=== PATIENT | male | born 1985 | race African-American/Black ===

== ENCOUNTER 2023-06-18 10:04 | Inpatient (IN) | payer OTHER ==
[~2023-06-18] VITALS: Ht 188 cm; Wt 88.0 kg
[2023-06-18 10:39] LABS: BASOPHILS % 0.3 % (0.0-2.0); EOSINOPHILS % 0.3 % (0.0-5.0); HEMATOCRIT. 43.4 % (42.0-52.0); HEMOGLOBIN. 14.8 g/dL (14.0-18.0); LYMPHOCYTES % 13.8 % (20.0-50.0); MEAN CORPUSCULAR HEMOGLOBIN 29.5 pg (28.0-32.0); MEAN CORPUSCULAR HGB CONC 34.2 g/dL (31.0-37.0); MEAN CORPUSCULAR VOLUME 86.4 fL (80.0-94.0); MEAN PLATELET VOLUME 8.2 fl (7.4-10.4); MONOCYTES % 8.2 % (2.0-8.0); NEUTROPHILS % 77.4 % (40.0-76.0); PLATELET 284 x1000/uL (130-400); RED BLOOD CELL COUNT 5.03 mill/uL (4.7-6.1); RED CELL DISTRIBUTION WIDTH 14.1 % (11.6-14.6); WHITE BLOOD COUNT 9.4 x1000/uL (4.5-11.0)
[2023-06-18 10:54] LABS: ALANINE AMINOTRANSFERASE < 7 IU/L (10-49); ALBUMIN 3.8 g/dL (3.2-4.8); ASPARTATE AMINOTRANSFERASE 17 IU/L (<34); BILIRUBIN TOTAL 0.5 mg/dL (0.1-1.0); CALCIUM 8.2 mg/dL (8.7-10.4); CARBON DIOXIDE 21 mEq/L (21-32); CHLORIDE 102 mEq/L (98-107); GLUCOSE 135 mg/dL (70-105); POTASSIUM 4.1 mEq/L (3.5-5.1); PROTEIN TOTAL 7.7 g/dL (6.0-8.3); SODIUM 131 mEq/L (136-145); UREA NITROGEN BLOOD 14 mg/dL (9-23)
[2023-06-18] MEDS: AZITHROMYCIN 500 MG TABLET PO ONE (11:44)
[2023-06-18] MEDS: ACETAMINOPHEN 325MG TABLET PO ONE (11:44)
[2023-06-18] MEDS: AMOXICILLIN/POTASSIUM CLAVULANATE 875/125MG TAB PO ONE (11:44)
[2023-06-18] MEDS: KETOROLAC 60MG/2ML VIAL IM ONE (11:44)
[2023-06-18] MEDS: SODIUM CHLORIDE 0.9% 1,000 ML IV ONE ×2 (12:20→14:34)
[2023-06-18 15:54] LABS: TROPONIN I HIGH SENSITIVITY 81 ng/L (3.0-53)
[2023-06-18] MEDS ORDERED: ONDANSETRON HCL 4MG/2ML INJ IV PRN (18:00)
[2023-06-18] MEDS ORDERED: DIPHENHYDRAMINE 50MG/ML VIAL IV PRN (18:00)
[2023-06-18] MEDS ORDERED: IPRATROPIUM/ALBUTEROL 0.5-3(2.5)MG/3ML NEB HHN PRN (18:00)
[2023-06-18] MEDS ORDERED: CLONIDINE 0.1MG TABLET PO PRN (18:00)
[2023-06-18] MEDS: SODIUM CHLORIDE 0.9% 1,000 ML IV SCH (18:38)
[2023-06-18] MEDS: CEFTRIAXONE 1GM/50ML 50 ML IV SCH (18:48)
[2023-06-18] MEDS: ACETAMINOPHEN 325MG TABLET PO PRN (19:01)
[2023-06-18 19:25] LABS: CLARITY URINE CLEAR (CLEAR); COLOR URINE DARK YELLOW (YELLOW); GLUCOSE URINE NEGATIVE (NEGATIVE); KETONES URINE TRACE (NEGATIVE); LEUKOCYTE ESTERASE URINE TRACE (NEGATIVE); NITRITE URINE NEGATIVE (NEGATIVE); OCCULT BLOOD URINE NEGATIVE (NEGATIVE); PH URINE 5.5 (4.5-8.0); PROTEIN URINE 2+ (NEGATIVE); SPECIFIC GRAVITY URINE 1.034 (1.005-1.030)
[2023-06-18 20:04] LABS: RBC URINE 0-2 /hpf (0-2)
[2023-06-18 20:05] LABS: BACTERIA URINE 1+; SQUAMOUS EPITHELIAL CELL URINE RARE /lpf (RARE/1+)
[2023-06-18 20:25] VITALS: BP 141/102; PULSE 110; RESP 20; TEMP 98.9
[2023-06-18 20:45] VITALS: BP 137/101; PULSE 113; RESP 21; TEMP 98.9
[2023-06-18 22:45] VITALS: BP 137/96; PULSE 106; RESP 15; TEMP 98.5
[2023-06-19] VITALS: BP 136/96; PULSE 108; RESP 20; TEMP 98.3
[2023-06-19 04:00] VITALS: BP 137/96; PULSE 96; RESP 18; TEMP 98.2
[2023-06-19 07:26] LABS: BASOPHILS % 0.3 % (0.0-2.0); EOSINOPHILS % 1.6 % (0.0-5.0); HEMATOCRIT. 37.9 % (42.0-52.0); HEMOGLOBIN. 12.7 g/dL (14.0-18.0); LYMPHOCYTES % 28.1 % (20.0-50.0); MEAN CORPUSCULAR HGB CONC 33.4 g/dL (31.0-37.0); MEAN CORPUSCULAR VOLUME 86.7 fL (80.0-94.0); MEAN PLATELET VOLUME 8.1 fl (7.4-10.4); MONOCYTES % 12.1 % (2.0-8.0); NEUTROPHILS % 57.9 % (40.0-76.0); PLATELET 278 x1000/uL (130-400); RED BLOOD CELL COUNT 4.37 mill/uL (4.7-6.1); WHITE BLOOD COUNT 9.8 x1000/uL (4.5-11.0)
[2023-06-19] MEDS ORDERED: BICT1TAB PO (07:41)
[2023-06-19] MEDS ORDERED: AMLO2.5T45 PO (07:41)
[2023-06-19 07:51] LABS: ALANINE AMINOTRANSFERASE < 7 IU/L (10-49); ALBUMIN 3.4 g/dL (3.2-4.8); ASPARTATE AMINOTRANSFERASE 12 IU/L (<34); BILIRUBIN TOTAL 0.4 mg/dL (0.1-1.0); CALCIUM 8.3 mg/dL (8.7-10.4); CARBON DIOXIDE 25 mEq/L (21-32); CHLORIDE 106 mEq/L (98-107); GLUCOSE 80 mg/dL (70-105); SODIUM 138 mEq/L (136-145); UREA NITROGEN BLOOD 13 mg/dL (9-23)
[2023-06-19 08:00] VITALS: BP 138/98; PULSE 95; RESP 18; TEMP 98.8
[2023-06-19] MEDS: AZITHROMYCIN 500 MG in DEXT 5% WATER 250 ML IV SCH (10:01)
[2023-06-19 12:00] VITALS: BP 145/90; PULSE 108; RESP 20; TEMP 98.6
[2023-06-19 15:20] VITALS: BP 138/94; PULSE 96; TEMP 98.6; O2SAT 94
[2023-06-19 16:22] LABS: TROPONIN I HIGH SENSITIVITY 62 ng/L (3.0-53)
== END 2023-06-19 16:30 | disposition short-term general hospital (02) | DRG 139 ==
LOC: ER 10:04 → EDBEDREQ 13:37 → EDBEDREQTM 13:37 → 3WST 20:26
PROVIDERS: ADMIT Internal Medicine; ATTEND Internal Medicine
DX: J18.9 Pneumonia, unspecified organism (principal); J96.00 Acute respiratory failure, unspecified whether with hypoxia or hypercapnia; Z20.822 Contact with and (suspected) exposure to COVID-19; I10 Essential (primary) hypertension; R79.89 Other specified abnormal findings of blood chemistry; Z79.899 Other long term (current) drug therapy; Z87.01 Personal history of pneumonia (recurrent); E86.0 Dehydration; Z21 Asymptomatic human immunodeficiency virus [HIV] infection status
CPT/HCPCS: 36415; 71045; 80053; 81003; 83605; 84484; 85025; 87426; 93005; 93970; 99285; J0696; J1885; J7030

== ENCOUNTER 2023-08-14 16:48 | Emergency (ER) | payer OTHER ==
[~2023-08-14] VITALS: Ht 188 cm; Wt 100.0 kg
[~2023-08-14 16:48] MED LIST: AMLO2.5T45 PO; BICT1TAB PO
[2023-08-14 16:52] VITALS: O2SAT 98
[2023-08-14 17:30] LABS: BASOPHILS % 0.6 % (0.0-2.0); EOSINOPHILS % 5.6 % (0.0-5.0); HEMATOCRIT. 46.2 % (42.0-52.0); HEMOGLOBIN. 15.8 g/dL (14.0-18.0); LYMPHOCYTES % 32.3 % (20.0-50.0); MEAN CORPUSCULAR HGB CONC 34.1 g/dL (31.0-37.0); MEAN CORPUSCULAR VOLUME 87.8 fL (80.0-94.0); MEAN PLATELET VOLUME 8.9 fl (7.4-10.4); MONOCYTES % 12.6 % (2.0-8.0); NEUTROPHILS % 48.9 % (40.0-76.0); PLATELET 244 x1000/uL (130-400); RED BLOOD CELL COUNT 5.26 mill/uL (4.7-6.1); RED CELL DISTRIBUTION WIDTH 15.9 % (11.6-14.6)
[2023-08-14] MEDS: FAMOTIDINE 20MG TABLET PO NR (17:30)
[2023-08-14] MEDS: ONDANSETRON 4MG ODT PO NR (17:30)
[2023-08-14] MEDS: DICYCLOMINE HCL 10MG/ML 2ML VIAL IM NR (17:30)
[2023-08-14] MEDS: MAGNESIUM/ALUMINUM HYDROXIDE/SIMETHICONE 30ML UDC PO NR (17:30)
[2023-08-14 17:33] LABS: CARBON DIOXIDE 23 mEq/L (21-32); CHLORIDE 108 mEq/L (98-107); POTASSIUM 3.4 mEq/L (3.5-5.1); SODIUM 139 mEq/L (136-145)
[2023-08-14 17:34] LABS: CALCIUM 9.1 mg/dL (8.7-10.4)
[2023-08-14 17:38] LABS: CREATININE 1.3 mg/dL (0.6-1.3); GLUCOSE 114 mg/dL (70-105)
[2023-08-14 17:39] LABS: UREA NITROGEN BLOOD 10 mg/dL (9-23)
[2023-08-14 17:40] LABS: ALANINE AMINOTRANSFERASE 10 IU/L (10-49); ALBUMIN 4.2 g/dL (3.2-4.8); ASPARTATE AMINOTRANSFERASE 26 IU/L (<34)
[2023-08-14 17:41] LABS: BILIRUBIN DIRECT 0.3 mg/dL (<=3.0); BILIRUBIN TOTAL 0.7 mg/dL (0.1-1.0); PROTEIN TOTAL 8.4 g/dL (6.0-8.3)
[2023-08-14 18:00] VITALS: BP 149/88; PULSE 71; RESP 17; TEMP 97.9
[2023-08-14] MEDS ORDERED: ONDA4TAB11 PO (18:13)
[2023-08-14] MEDS ORDERED: FAMO-135 MT (18:13)
== END 2023-08-14 18:51 | disposition home or self-care (01) ==
LOC: ER 16:48
DX: K52.9 Noninfective gastroenteritis and colitis, unspecified (principal)
CPT/HCPCS: 99284; 80076; 80048; 83690; 85025; 36415; 96372; Q0162; J0500